=== PATIENT | female | born 1955 | race Caucasian/White ===

== ENCOUNTER → 2022-02-04 15:21 | Outpatient (BNVA) | payer MEDICARE, SELFPAY | PROVIDERS: PCP Physician Assistant Medical; Visit Provider Hospitalist | DX: J43.2 Centrilobular emphysema (principal); R91.8 Other nonspecific abnormal finding of lung field; F17.210 Nicotine dependence, cigarettes, uncomplicated | CPT/HCPCS: 99202 ==

== ENCOUNTER 2022-03-08 12:52 | Outpatient (REF) | payer MEDICARE, SELFPAY ==
--- NOTE | 2022-03-08 17:22 | PFT_ITS ---
Forced vital capacity 88%, FEV1 at 80%. FEV1/FVC ratio 69. [id number] 56% and MVV 72%. Post bronchodilator therapy, there is no change. Total lung capacity 89% and residual volume 86%. Diffusion capacity 44% CONCLUSION: There is evidence of mild obstructive airway disorder. No further response to bronchodilator therapy is noted. Diffusion capacity is rather markedly decreased, and this could be due to combination of obstructive airway disorder and pulmonary emphysema and also nonpulmonary factors for which clinical correlation is recommended. MD RADHA Boone/MODL / [id number]
== END 2022-03-08 12:53 | disposition home or self-care (01) ==
LOC: HO.RESP 12:52
PROVIDERS: PCP Internal Medicine; Visit Provider Hospitalist
DX: J44.9 Chronic obstructive pulmonary disease, unspecified (principal)
CPT/HCPCS: 94060; 94727; 94729

== ENCOUNTER → 2022-03-23 13:10 | Outpatient (BNVA) | payer MEDICARE, SELFPAY | PROVIDERS: PCP Internal Medicine; Visit Provider Hospitalist | DX: J43.2 Centrilobular emphysema (principal); R91.8 Other nonspecific abnormal finding of lung field; F17.210 Nicotine dependence, cigarettes, uncomplicated | CPT/HCPCS: 99212 ==